=== PATIENT | male | born 2000 | race Caucasian/White ===

== ENCOUNTER 2023-07-03 14:00 | Outpatient (RCR) | payer OTHER, SELFPAY ==
[2023-06-11 13:31] VITALS: BP 116/71; PULSE 87; RESP 18; TEMP 36.7; BMI 16.9
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
[2023-06-18 15:15] VITALS: BP 130/84; PULSE 79; RESP 18; TEMP 36.6; BMI 16.9
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
[2023-07-03 13:47] VITALS: BP 102/63; PULSE 92; RESP 18; BMI 16.9
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
== END 2023-07-07 23:59 | disposition home or self-care (01) ==
LOC: WC 14:00
PROVIDERS: Visit Provider Nurse Practitioner Family
DX: L89.224 Pressure ulcer of left hip, stage 4 (principal); G82.20 Paraplegia, unspecified; R63.6 Underweight; S12.600S Unspecified displaced fracture of seventh cervical vertebra, sequela; V86.59XA Driver of other special all-terrain or other off-road motor vehicle injured in nontraffic accident, initial encounter; Z68.1 Body mass index [BMI] 19.9 or less, adult
CPT/HCPCS: 11043; 11046; 99204; G0463

== ENCOUNTER 2023-08-05 13:45 | Outpatient (RCR) | payer OTHER, SELFPAY ==
[2023-07-08 00:09] VITALS: BP 102/63; PULSE 92; RESP 18; TEMP 36.6; BMI 16.9
[2023-07-16 13:36] VITALS: BP 98/55; PULSE 105; RESP 18; TEMP 36.4; BMI 16.9
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
[2023-08-05 13:54] VITALS: BP 102/66; PULSE 102; TEMP 36.3; BMI 16.9
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
== END 2023-08-06 23:59 | disposition home or self-care (01) ==
LOC: WC 13:45
PROVIDERS: Visit Provider Nurse Practitioner Family
DX: L89.224 Pressure ulcer of left hip, stage 4 (principal); G82.20 Paraplegia, unspecified; S12.600S Unspecified displaced fracture of seventh cervical vertebra, sequela; V86.59XS Driver of other special all-terrain or other off-road motor vehicle injured in nontraffic accident, sequela; F32.A Depression, unspecified; Z79.899 Other long term (current) drug therapy
CPT/HCPCS: 11043; 11046

== ENCOUNTER 2023-08-19 09:39 | Outpatient (RCR) | payer OTHER, SELFPAY ==
[2023-08-07 00:37] VITALS: BP 102/66; PULSE 102; RESP 18; TEMP 36.3; BMI 16.9
[2023-08-19 09:41] VITALS: BP 95/55; PULSE 92; RESP 18; TEMP 35.8; BMI 16.9
--- NOTE | 2023-08-19 12:07 | WC ---
DIRECTOR FINANCIAL SYSTEMS FROM [facility], ABDELRAHMAN ZAMUDIO CALLED. STATES PT'S WBC COUNT TODAY IS 16,000 AND LAST WEEK IT WAS 9,000. CONCERNED FOR INFECTION. UPDATED [facility] Douglass/ INSTRUCTIONS FOR [facility] TO SEND PT TO ER FOR DIRECT ADMIT TO [facility]. [facility] IS REFERRING PT THERE FOR SURGERY. ABDELRAHMAN WAS INFORMATIVE REGARDING PT AND HIS OVERALL CARE. HE IS ALWAYS UNKEMPT AT VISITS HERE. SHE STATES HE REFUSES CARE, CLOTHING, SHOWERS. REMOVES HIS DRSG OFTEN. DX OF BIPOLAR AND OFTEN REFUSES MEDS.
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
== END 2023-09-06 23:59 | disposition home or self-care (01) ==
LOC: WC 09:39
PROVIDERS: Visit Provider Nurse Practitioner Family
DX: L89.224 Pressure ulcer of left hip, stage 4 (principal); G82.20 Paraplegia, unspecified; S12.600S Unspecified displaced fracture of seventh cervical vertebra, sequela; V86.59XS Driver of other special all-terrain or other off-road motor vehicle injured in nontraffic accident, sequela; Z79.899 Other long term (current) drug therapy
CPT/HCPCS: 11043

== ENCOUNTER 2023-12-04 12:58 | Outpatient (RCR) | payer OTHER, SELFPAY ==
[2023-09-07 02:04] VITALS: BP 102/66; PULSE 102; RESP 18; TEMP 36.3; BMI 16.9
[2023-12-04 13:23] VITALS: BP 107/83; PULSE 102; RESP 18; TEMP 36.8; BMI 18.3
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
--- NOTE | 2023-12-05 09:17 | WC ---
PHOTO 12/04/23 LEFT ISCHIUM
--- NOTE | 2023-12-05 09:23 | WC ---
PHOTO 12/04/23 LEFT ISCHIUM
== END 2023-12-07 23:59 | disposition home or self-care (01) ==
LOC: WC 12:58
PROVIDERS: Visit Provider Nurse Practitioner Family
DX: L89.224 Pressure ulcer of left hip, stage 4 (principal); G82.20 Paraplegia, unspecified; S73.004A Unspecified dislocation of right hip, initial encounter; S12.600S Unspecified displaced fracture of seventh cervical vertebra, sequela; V86.59XS Driver of other special all-terrain or other off-road motor vehicle injured in nontraffic accident, sequela; Z79.899 Other long term (current) drug therapy
CPT/HCPCS: 99213; 99214; G0463

== ENCOUNTER 2023-12-30 12:47 | Outpatient (RCR) | payer OTHER, SELFPAY ==
[2023-12-08 00:06] VITALS: BP 102/66; PULSE 102; RESP 18; TEMP 36.3; BMI 16.9
[2023-12-30 12:52] VITALS: BP 120/69; PULSE 92; RESP 16; TEMP 36.9; BMI 16.9
== END 2024-01-06 23:59 | disposition home or self-care (01) ==
LOC: WC 12:47
PROVIDERS: Visit Provider Nurse Practitioner Family
DX: L89.324 Pressure ulcer of left buttock, stage 4 (principal); G82.20 Paraplegia, unspecified; S12.600S Unspecified displaced fracture of seventh cervical vertebra, sequela; V86.59XS Driver of other special all-terrain or other off-road motor vehicle injured in nontraffic accident, sequela
CPT/HCPCS: 11044